=== PATIENT | male | born 1955 | race Caucasian/White ===

== ENCOUNTER 2017-12-19 08:12 | Day surgery (SDC) | payer OTHER ==
[~2017-12-19] VITALS: Ht 170.2 cm; Wt 117.9 kg
[2017-12-19] MEDS ORDERED: SIMETHICONE 40 MG/0.6 ML ML ONE (09:22)
[2017-12-19] MEDS ORDERED: MEPERIDINE HCL/PF 100 MG/ML AMP ONE (09:23)
[2017-12-19] MEDS: MIDAZOLAM HCL 5 MG/5 ML VIAL ONE ×3 (11:20→11:24)
[2017-12-19 14:15] VITALS: BP_SYST 122
== END 2017-12-19 12:25 | disposition home or self-care (01) ==
LOC: SDS 08:12
PROVIDERS: ATTEND Colon & Rectal Surgery
DX: Z12.11 Encounter for screening for malignant neoplasm of colon (principal); Z86.010 Personal history of colon polyps; K57.30 Diverticulosis of large intestine without perforation or abscess without bleeding; H25.093 Other age-related incipient cataract, bilateral; J30.9 Allergic rhinitis, unspecified; J45.40 Moderate persistent asthma, uncomplicated; I10 Essential (primary) hypertension; N40.1 Benign prostatic hyperplasia with lower urinary tract symptoms; N13.8 Other obstructive and reflux uropathy; I51.7 Cardiomegaly; I82.409 Acute embolism and thrombosis of unspecified deep veins of unspecified lower extremity; E78.5 Hyperlipidemia, unspecified; Z68.41 Body mass index [BMI] 40.0-44.9, adult; E66.01 Morbid (severe) obesity due to excess calories; M17.10 Unilateral primary osteoarthritis, unspecified knee; I77.1 Stricture of artery; E53.8 Deficiency of other specified B group vitamins; Z96.659 Presence of unspecified artificial knee joint; Z79.899 Other long term (current) drug therapy; Z87.891 Personal history of nicotine dependence
CPT/HCPCS: 45378; J2175; J2250